=== PATIENT | female | born 2005 | race Caucasian/White ===

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

== ENCOUNTER 2024-12-25 06:04 | Emergency (ER) | payer BC, MEDICAID ==
[~2024-12-25] VITALS: Ht 172.7 cm; Wt 61.8 kg
[~2024-12-25 06:04] MED LIST: XYL25J MM
[2024-12-25 06:16] VITALS: BP 134/95; PULSE 73; RESP 18; O2SAT 98
--- NOTE | 2024-12-25 06:41 | Physician Documentation ---
History of Present Illness ~ Chief Complaint: Eye Pain Stated Complaint: SWOLLEN EYE Time Seen by MD: 06:36 Primary Medical Doctor: litzy feliz HPI 18 year old female with L eye itching, watering, and swelling. Medication Reconciliation Allergies: Coded Allergies: amoxicillin (Verified Allergy, Mild, diarrhea, 12/25/24) cat dander (Verified Allergy, Unknown, 12/25/24) dog dander (Verified Allergy, Unknown, 12/25/24) pollen extracts (Verified Allergy, Unknown, 12/25/24) Scheduled PRN Lidocaine Hcl (Xylocaine Jelly), 5 ML MM Q4H PRN for pain Review of Systems All Other Systems at this time: Reviewed and Negative Physical Exam Vital Signs: RN Vital Signs have been reviewed: Yes, Temperature: 98.4, Source: Oral, Heart Rate: 73, Respiratory Rate: 18, BP: 134/95, Pulse Oximetry: 98, Weight: 61.800 Physical Exam HEENT: PERRL, moist oral mucosa, EOMI; L eye with serous drainage and conjunctival injection Pulmonary: No respiratory distress MSK: no deformity Skin: w/d/i, no rash Neuro: alert, nonfocal Psych: normal affect Progress Results/Orders Results/Orders Vital Signs 12/25/24 06:16 Temp 98.4 Pulse 73 Resp 18 B/P (MAP) 134/95 Pulse Ox 98 Medical Decision Making Additional Comment Ddx = allergic conjunctivits, bacterial conjunctivitis, viral conjunctivitis. Departure Disposition: HOME / SELF CARE / HOMELESS Impression: Primary Impression: Allergic conjunctivitis Condition: Stable Discharge Instructions: Allergic Conjunctivitis, Adult Referrals: NO PRIMARY CARE PROVIDER (PCP) Education Educated: Patient Educated regarding: diagnosis, treatment, prognosis, need for follow up Signature Scribe Signature: . Attestation: . SHOAIB GA MD Dec 25, 2024 06:41
[2024-12-25] MEDS: prednisoLONE acetate 1% ophth susp 5ml EACHEYE ONE (07:11)
[2024-12-25 07:19] VITALS: TEMP 98.4
[2024-12-25] MEDS ORDERED: prednisoLONE acetate 1% ophth susp 5ml EACHEYE SCH (08:00)
== END 2024-12-25 07:21 | disposition home or self-care (01) ==
LOC: ER 06:05
DX: H10.32 Unspecified acute conjunctivitis, left eye (principal); Z88.0 Allergy status to penicillin
CPT/HCPCS: 99283